=== PATIENT | female | born 1965 | race Caucasian/White ===

== ENCOUNTER 2017-04-27 06:53 | Emergency (ER) | payer BC ==
[~2017-04-27] VITALS: Ht 160 cm; Wt 68.0 kg
[2017-04-27 07:10] VITALS: BP 159/78
--- NOTE | 2017-04-27 07:44 | ED.ADGEN ---
Past Medical History Past Medical History: No Pertinent History Past Surgical History: , Hysterectomy Additional Past Surgical Histo: breast augmentation Alcohol Use: None Drug Use: None Adult General Chief Complaint Chief Complaint: ABDOMINAL PAIN HPI HPI Patient is a 51 year old female who presents with left lower quadrant pain 2 days. Patient has a history of chronic intermittent left lower quadrant pain for the past several years. Pain is described as mild, persistent and dull and typically lasts for 12-24 hours associated with loose stools or diarrhea. Patient's current episodes longer duration. She reports loose stools but denies mucous bloody stools. She denies nausea vomiting, flank pain fever, very frequency and urgency. Patient has never been negative for her abdominal pain prior to ED visit does not currently have a PCP. Patient has priors C-sections denies prior abdominal surgery. Review of Systems Review of Systems ROS as per HPI. Allergies Allergies Allergies Coded Allergies Type Severity Reaction Last Updated Verified codeine Allergy Intermediate 04/27/17 Yes Physical Exam Physical Exam Constitutional: Well developed, well nourished, no acute distress, non-toxic appearance. [] HENT: Normocephalic, atraumatic, bilateral external ears normal, oropharynx moist, nose normal. [] Eyes: PERRLA, EOMI, conjunctiva normal, no discharge. [] Neck: Normal range of motion. [] Cardiovascular:Heart rate regular rhythm, no murmur [] Lungs & Thorax: Bilateral breath sounds clear to auscultation [] Abdomen: Bowel sounds normal, soft, no distention, lower quadrant pain, tenderness or rebound rigidity or guarding. [] Skin: Warm, dry, no erythema, no rash. [] Back: No tenderness, no CVA tenderness. [] Neurologic: Alert and oriented X 3, normal motor function, normal sensory function, no focal deficits noted. [] Psychologic: Affect normal, judgement normal, mood normal. [] Current Patient Data Vital Signs Vital Signs Date Time Temp Pulse Resp B/P (MAP) Pulse Ox O2 Delivery O2 Flow Rate FiO2 04/27/17 07:10 98.6 76 20 159/78 (105) 97 Room Air 98.6 EKG EKG [] Radiology/Procedures Radiology/Procedures [] Course & Med Decision Making Course & Med Decision Making Pertinent Labs and Imaging studies reviewed. (See chart for details) [Patient offered evaluation of abdominal pain. Labs and imaging studies declined. Patient does not currently have a PCP and was hoping to have a colonoscopy scheduled this morning. I explained to patient that I cannot determine the cause of her pain without forming labs and imaging studies and colonoscopy are not not performed or scheduled in the emergency department. Patient declines evaluation at this time. States she doesn't want to wait or be late for. She prefers to follow-up with a primary care physician and obtain outpatient testing and evaluation. She is instructed to follow up with a PCP RICHY or return to the emergency department should she change her mind regarding additional workup her symptoms worsen. She verbalizes understanding agreement with her discharge instructions.] Dragon Disclaimer Dragon Disclaimer This electronic medical record was generated, in whole or in part, using a voice recognition dictation system. JUNIOR MARY DO Apr 27, 2017 07:44
== END 2017-04-27 07:45 | disposition home or self-care (01) ==
LOC: ER 06:53
DX: R10.32 Left lower quadrant pain (principal); Z90.710 Acquired absence of both cervix and uterus; Z88.5 Allergy status to narcotic agent
CPT/HCPCS: 99281